=== PATIENT | male | born 1975 | race Caucasian/White ===

== ENCOUNTER 2018-01-01 19:21 | Emergency (ER) | payer OTHER ==
[2018-01-01] MEDS ORDERED: NS 0.9% 1000 ML* 1,000 ML IV ONE (20:00)
[2018-01-01] MEDS ORDERED: Metoclopramide IV* 5 MG/ML 2 ML VIAL IV SLOW PU ONE (20:01)
[2018-01-01] MEDS ORDERED: Ketorolac INJ* 30 MG/ML 1 ML VIAL IV PUSH ONE (20:01)
[2018-01-01 20:27] LABS: Hematocrit 50 % (42-52); Hemoglobin 16.9 g/dl (14.0-18.0); Mean Corpuscular HGB Conc 34 g/dl (31-36); Mean Corpuscular Hemoglobin 29 pg (27-31); Mean Corpuscular Volume 87 fL (80-94); Mean Platelet Volume 8.4 um3 (7.4-10.4); Platelet Count 218 10^3/ul (150-450); Red Blood Count 5.77 10^6/ul (4.0-5.4); Red Cell Distribution Width 13 % (10.5-15); White Blood Count 12.8 10^3/ul (3.5-10.8)
[2018-01-01 20:44] LABS: EGFR Non-African American 72.3 (>60)
[2018-01-01 20:56] LABS: ABS Basophils 0 10^3/ul (0-0.2); ABS Eosinophils 0.1 10^3/ul (0-0.6); ABS Lymphocytes 1.3 10^3/ul (1.0-4.8); ABS Monocytes 1.6 10^3/ul (0-0.8); ABS Neutrophils 9.8 10^3/ul (1.5-7.7); ABS Nucleated RBC 0 10^3/ul; Lymphocyte % 10.4 % (25-47); Nucleated Red Blood Cells % 0.1
[2018-01-01 22:01] VITALS: BP 115/69
--- NOTE | 2018-01-01 22:19 | ED ---
Julio Miller Stephanie, scribed for Luis Walton MD on 01/01/18 at 2001 . Complex/Multi-Sys Presentation - HPI Summary HPI Summary: The pt is a 42 y/o M presenting to the ED with c/o flu symptoms that began on 12/27/17. Symptoms include dehydration, slight memory loss, vomiting, diarrhea, nausea, abd pain, decreased energy, fever and decreased oral intake. The pt states he has not had diarrhea since 12/30/17. The pt denies taking medications for his symptoms. - History Of Current Complaint Chief Complaint: EDFluSymptoms Time Seen by Provider: 01/01/18 19:49 Hx Obtained From: Patient Onset/Duration: Gradual Onset, Lasting Days - 6, Still Present Timing: Constant Severity Currently: Mild Associated Signs And Symptoms: Positive: Confusion, Nausea, Vomiting, Diarrhea, Abdominal Pain, Decreased Oral Intake, Fever - Allergies/Home Medications Allergies/Adverse Reactions: Allergies Allergy/AdvReac Type Severity Reaction Status Date / Time adhesives Allergy Intermediate Itching Uncoded 08/24/16 07:44 VITAMIN B Allergy CYSTS ON Uncoded 08/24/16 07:44 BACK AND NECK PMH/Surg Hx/FS Hx/Imm Hx Endocrine/Hematology History: Denies: Hx Diabetes Cardiovascular History: Denies: Hx Hypertension, Other Cardiovascular Problems/Disorders Respiratory History: Reports: Hx Sleep Apnea - POSSIBLE Denies: Other Respiratory Problems/Disorders GI History: Reports: Hx Gastroesophageal Reflux Disease Denies: Other GI Disorders History: Denies: Hx Renal Disease Musculoskeletal History: Reports: Other Musculoskeletal History - c-spine disc compression, carpal tunnel Sensory History: Denies: Hx Contacts or Glasses, Hx Hearing Aid Opthamlomology History: Denies: Hx Contacts or Glasses Neurological History: Denies: Hx CVA, Other Neuro Impairments/Disorders Psychiatric History: Reports: Hx Anxiety - NO MEDS, Hx Depression - NO MEDS - Cancer History Hx Chemotherapy: No Hx Radiation Therapy: No - Surgical History Surgery Procedure, Year, and Place: denies Hx Anesthesia Reactions: No Infectious Disease History: No Infectious Disease History: Denies: Traveled Outside the [place] in Last 30 Days - Family History Known Family History: Positive: Hypertension - Social History Occupation: Unemployed Lives: With Family Alcohol Use: Occasionally Alcohol Amount: PT states that he drinks 8-10 beers each evening. Hx Substance Use: Yes Substance Use Type: Reports: Other - unknown Substance Use Comment - Amount & Last Used: DAILY Hx Tobacco Use: Yes Smoking Status (MU): Current Every Day Smoker Amount Used/How Often: PACK A DAY Review of Systems Positive: Fever, Other - dehydration, decreased energy, decreased oral intake Positive: Abdominal Pain, Vomiting, Diarrhea, Nausea Neurological: Other - memory loss All Other Systems Reviewed And Are Negative: Yes Physical Exam - Summary Physical Exam Summary: VITAL SIGNS: Reviewed. GENERAL: Patient is a well-developed and nourished MALE who is lying comfortable in the stretcher. Patient is not in any acute respiratory distress. HEAD AND FACE: No signs of trauma. No ecchymosis, hematomas or skull depressions. No sinus tenderness. EYES: PERRLA, EOMI x 2, No injected conjunctiva, no nystagmus. EARS: Hearing grossly intact. Ear canals and tympanic membranes are within normal limits. MOUTH: Oropharynx within normal limits. NECK: Supple, trachea is midline, no adenopathy, no JVD, no carotid bruit, no c- spine tenderness, neck with full ROM. CHEST: Symmetric, no tenderness at palpation LUNGS: Clear to auscultation bilaterally. No wheezing or crackles. CVS: Regular rate and rhythm, S1 and S2 present, no murmurs or gallops appreciated. ABDOMEN: Soft, non-tender. No signs of distention. No rebound no guarding, and no masses palpated. Bowel sounds are normal. EXTREMITIES: FROM in all major joints, no edema, no cyanosis or clubbing. NEURO: Alert and oriented x 3. No acute neurological deficits. Speech is normal and follows commands. SKIN: Dry and warm Triage Information Reviewed: Yes Vital Signs On Initial Exam: Initial Vitals Temp Pulse Resp BP Pulse Ox 98.3 F 88 16 150/88 100 01/01/18 19:23 01/01/18 19:23 01/01/18 19:23 01/01/18 19:23 01/01/18 19:23 Vital Signs Reviewed: Yes Diagnostics - Vital Signs Vital Signs Temp Pulse Resp BP Pulse Ox 01/01/18 19:23 98.3 F 88 16 150/88 100 - Laboratory Result Diagrams: 01/01/18 20:20 01/01/18 20:20 Lab Statement: Any lab studies that have been ordered have been reviewed, and results considered in the medical decision making process. Re-Evaluation - Re-Evaluation First Eval Re-Evaluation Time: 21:26 Change: Improved - The pt states he feels better. Complex Multi-Symp Course/Dx Course Of Treatment: The pt is a 42 y/o M presenting to the ED with c/o flu symptoms that began on 12/27/17. Symptoms include dehydration, slight memory loss , vomiting, diarrhea, nausea, abd pain, decreased energy, fever and decreased oral intake. The pt states he has not had diarrhea since 12/30/17. The pt denies taking medications for his symptoms. Exam unremarkable. mild leuklocytosis. Most likely viral illness, d/c home with reglan. - Diagnoses Provider Diagnoses: Gastroenteritis Discharge - Sign-Out/Discharge Documenting (check all that apply): Discharge - Discharge Plan Condition: Stable Disposition: HOME Prescriptions: Metoclopramide TAB* [Reglan TAB*] 10 mg PO Q6H PRN #20 tab PRN Reason: Nausea/Vomiting Patient Education Materials: Gastroenteritis (ED) Forms: *Work Release Referrals: Dani Kruger MD [Primary Care Provider] - 2 Days Additional Instructions: RETURN TO EMERGENCY DEPARTMENT FOR ANY NEW OR WORSENING SYMPTOMS The documentation as recorded by the Julio ivy Stephanie accurately reflects the service I personally performed and the decisions made by , Luis Walton MD.
== END 2018-01-01 22:01 | disposition home or self-care (01) ==
LOC: ED 19:21
DX: K52.9 Noninfective gastroenteritis and colitis, unspecified (principal)
CPT/HCPCS: 36415; 80053; 82150; 83690; 83735; 85025; 87502; 96360; 96374; 96375; 99283; J1885; J2765

== ENCOUNTER 2018-04-03 06:52 | Day surgery (SDC) | payer OTHER ==
--- NOTE | 2018-03-27 16:38 | HP ---
Amended report to enter co-signing physician. PREOPERATIVE HISTORY AND PHYSICAL: DATE OF SURGERY/ADMISSION: 04/03/18 DATE OF OFFICE VISIT/ENCOUNTER: 03/23/18 ATTENDING SURGEON: Jennifer Vogel MD* (dictated by POLLO Mahoney). PROCEDURE: Right wrist carpal tunnel release. CHIEF COMPLAINT: Numbness and tingling, bilateral hands, right worse than left. HISTORY OF PRESENT ILLNESS: This is a 42-year-old male, who reports that he has had symptoms of pain, numbness, and tingling in his hands for the past 15 years. They have progressively been getting worse. He denies any injury; however, he has done a lot of repetitive motions in the past. He was formally employed in construction and had a lot of problems with repetitive lifting, pushing, pulling. He gets symptoms at night that awakens him. He is right-hand dominant. He also gets symptoms throughout the day with various activities particularly if he is holding his baby with his wrist flexed in a static position. He was seen by Dr. Sandoval in the not too distant past and had an EMG /nerve conduction study ordered, which showed bilateral carpal tunnel syndrome. The patient has tried wrist splints in the past, but they have been minimally helpful. He is interested in more definitive treatment at this time and has consented to proceed with a right wrist carpal tunnel release. PAST MEDICAL HISTORY: 1. Recovering alcoholic. 2. Depression. PAST SURGICAL HISTORY: 1. Right shoulder surgery. 2. Skin biopsy. MEDICATIONS: 1. Amino Acid Complex. 2. Creatine. 3. Prostate medication. ALLERGIES: BENADRYL causes palpitations; VITAMIN B12, reaction unknown. FAMILY MEDICAL HISTORY: Diabetes, heart disease, and cancer. SOCIAL HISTORY: The patient is currently unemployed. He is a former smoker. He quit in 2012. Prior to that, he smoked more than a pack per day for several years. He denies recreational drug use. He is a recovering alcoholic. He has been sober since 08/30/17. REVIEW OF SYSTEMS: General: Negative for fevers, chills, night sweats, unexplained weight loss/gain. No known anesthesia problems. HEENT: Negative for headache, lightheadedness, syncopal episodes, visual changes. Integumentary : Negative for abrasions, lesions, or open wounds. Cardiothoracic: Negative for hypertension, chest pain, palpitations, edema. Respiratory: Negative for shortness of breath with exertion, chronic cough, wheezing. GI: Negative for nausea, vomiting, diarrhea, constipation, GERD. : Negative for nocturia, urinary frequency, urgency, history of UTIs, kidney problems. Musculoskeletal: Positive for current complaint. Negative for chronic or intermittent back pain or history of fractures. Neurological: Positive for paresthesias and numbness , bilateral hands. Negative for history of seizure, stroke, poor balance. Endocrine: Negative for diabetes and thyroid issues. Hematologic: Negative for easy bruising, anemia, bleeding disorders, history of DVT. Infectious Disease: Negative for history of MRSA, hepatitis C, HIV. PHYSICAL EXAMINATION GENERAL: Well-developed, well-nourished, 42-year-old male, in no acute distress. VITAL SIGNS: Height 5 feet 7 inches, weight 197 pounds. Pulse rate 70, blood pressure 126/78. HEENT: Normocephalic, atraumatic. Pupils are equal, round, and reactive to light and accommodation. Extraocular movements are intact. Throat is clear. NECK: Supple. No palpable lymph nodes. PULMONARY: Lungs are clear to auscultation bilaterally. No wheezes, rales, or rhonchi. CARDIOVASCULAR: Regular rate and rhythm. S1, S2. No murmurs, rubs, or gallops. No edema. ABDOMEN: Positive bowel sounds, soft, nontender. NEUROLOGICAL: Alert and oriented x3. Cranial nerves II through XII are intact. MUSCULOSKELETAL: On exam of bilateral upper extremities, his hands in particular, there is no muscular wasting noted at the thenar eminence or interosseous muscles. He has good strength in his thumb and with finger abduction. He has good motion in his thumb and fingers. He has no tenderness to palpation at the elbow. He has a positive Phalen's test, bilateral wrists. Negative Tinel's at the wrist and elbow. Positive median nerve compression test. He has good software engineer backend strength bilaterally and neurovascular function is intact. Sensation is intact to light touch throughout the hand. DIAGNOSTIC STUDIES: Nerve conduction/EMG shows bilateral mild carpal tunnel syndrome. IMPRESSION: Bilateral carpal tunnel syndrome. PLAN: The patient is scheduled to undergo a right wrist carpal tunnel release with Dr. Vogel on 04/03/18. He will return to the office 10 days postop for followup and suture removal. A prescription for Ultracet was given to the patient to fill for postoperative pain management. POLLO MAOHNEY [id number]/[facility] #: [id number] MTDSimone
[~2018-04-03 06:52] MED LIST: Buffered Lidocaine 0.9% SYRIN* 5 ML/SYR SYRINGE INTRADERM ONE
[2018-04-03] MEDS ORDERED: fentaNYL* 50 MCG/ML 2 ML VIAL (100 MCG VIAL) ONE (07:22)
[2018-04-03] MEDS ORDERED: Midazolam* 1 MG/ML 2 ML VIAL (2 MG) ONE (07:22)
[2018-04-03] MEDS ORDERED: Lidocaine 2% PF * 5 ML VIAL ONE (07:23)
[2018-04-03] MEDS ORDERED: Ondansetron INJ* 2 MG/ML VIAL IV PRN (07:46)
[2018-04-03] MEDS ORDERED: HYDROmorphone INJ* 0.5 MG/0.5 ML SYRINGE IV PRN (07:46)
[2018-04-03] MEDS ORDERED: fentaNYL* 50 MCG/ML 2 ML VIAL (100 MCG VIAL) IV PRN (07:46)
[2018-04-03] MEDS ORDERED: Acetaminophen TAB* 325 MG PO PRN (07:46)
[2018-04-03] MEDS ORDERED: HYDROcodone/ACETAMIN 5-325 MG* 1 TAB PO PRN (07:46)
[2018-04-03] MEDS ORDERED: oxyCODONE TAB* 5 MG TAB PO PRN (07:46)
[2018-04-03] MEDS ORDERED: Naloxone* 0.4 MG/ML 1 ML VIAL IV PRN (07:46)
[2018-04-03] MEDS ORDERED: Ketorolac INJ* 30 MG/ML 1 ML VIAL ONE (07:55)
[2018-04-03] MEDS ORDERED: Propofol* 10 MG/ML 20 ML BTL IV PUSH ONE (07:55)
[2018-04-03] MEDS ORDERED: Lidocaine 1%* 5 ML VIAL ONE (08:11)
[2018-04-03 09:33] VITALS: BP 110/75
--- NOTE | 2018-04-03 21:27 | OP ---
DATE OF OPERATION: 04/03/18 [facility] DATE OF : 77 SURGEON: Jennifer Vogel MD TREATER HELPER: POLLO Mahoney ANESTHESIA: Local MAC. PRE-OP DIAGNOSIS: Right carpal tunnel syndrome. POST-OP DIAGNOSIS: Right carpal tunnel syndrome. OPERATIVE PROCEDURE: Right carpal tunnel release. ESTIMATED BLOOD LOSS: Zero. TOURNIQUET TIME: 5 minutes. INDICATIONS FOR PROCEDURE: Jimi is a 42-year-old male with numbness and tingling in the median nerve distribution of his right hand. He presents for right carpal tunnel release. DESCRIPTION OF PROCEDURE: The patient was brought to the operating room, was given a sedation anesthetic and a local infiltration of 10 cc of 1% plain lidocaine in the palm of his right hand. The skin of his right hand and forearm were prepped and draped in the usual sterile fashion. The hand and forearm were exsanguinated and the tourniquet elevated to 250 mmHg. A longitudinal incision was made in the palm in line with the ring finger. We dissected sharply through the subcutaneous tissue down to the transverse carpal ligament. The ligament was divided sharply with a knife and then more proximally with the scissors. The nerve was dissected free from the surrounding tissue and there was an area of moderate compression at the mid portion of the ligament. The wound was irrigated and the skin edges were reapproximated with 4-0 nylon suture. The wound was dressed with Xeroform, 4x4 , Webril, and an Shaun wrap. The patient tolerated the procedure well and was brought to the recovery room in good condition. [id number]/[facility] #: [id number] [facility]XTON HOSPITALSimone
== END 2018-04-03 09:45 | disposition home or self-care (01) ==
LOC: OREAST 06:52
PROVIDERS: ATTEND Orthopaedic Surgery
DX: G56.01 Carpal tunnel syndrome, right upper limb (principal); F10.21 Alcohol dependence, in remission; Z68.30 Body mass index [BMI] 30.0-30.9, adult; Z87.891 Personal history of nicotine dependence; F41.8 Other specified anxiety disorders; F43.10 Post-traumatic stress disorder, unspecified; M47.812 Spondylosis without myelopathy or radiculopathy, cervical region
CPT/HCPCS: J1885; J2250; J2704; J3010

== ENCOUNTER 2018-11-08 08:58 | Emergency (ER) | payer OTHER ==
[2018-11-08 09:09] VITALS: BP 142/90
--- NOTE | 2018-11-08 12:21 | ED ---
Lower Extremity - HPI Summary HPI Summary: Patient is a 43-year-old male presenting to the ED with a right great toe injury. He states he stubbed the toe on a stair yesterday. He endorses pain with movement, better with rest. Ecchymosis to the great toe without ecchymosis to the other toes or dorsum of the foot. He remains ambulatory. Denies any numbness or tingling. He has never injured the toe in the past. - History of Current Complaint Chief Complaint: EDExtremityLower Stated Complaint: RIGHT FOOT INJURY Time Seen by Provider: 11/08/18 09:13 Hx Obtained From: Patient Mechanism Of Injury: Direct Blow Onset of Pain: Minutes Onset/Duration: Days Severity Initially: Mild Severity Currently: Mild Pain Intensity: 0 Pain Scale Used: 0-10 Numeric Timing: Constant Location: Is Discrete @ - right great toe Character Of Pain: Aching Associated Signs And Symptoms: Positive: Bruising. Negative: Swelling, Redness Aggravating Factor(s): Standing, Ambulation Alleviating Factor(s): Rest Able to Bear Weight: Yes - Allergies/Home Medications Allergies/Adverse Reactions: Allergies Allergy/AdvReac Type Severity Reaction Status Date / Time VITAMIN B Allergy Severe CYSTS ON Uncoded 04/03/18 07:22 BACK AND NECK adhesives Allergy Intermediate ITCHING, Uncoded 04/03/18 07:22 RASH PMH/Surg Hx/FS Hx/Imm Hx Previously Healthy: Yes Endocrine/Hematology History: Denies: Hx Bone Marrow Disease, Hx Diabetes, Hx Sickle Cell Disease, Hx Anemia Cardiovascular History: Denies: Hx Hypertension, Other Cardiovascular Problems/Disorders Respiratory History: Reports: Hx Sleep Apnea - POSSIBLE ? NOT BEEN DX Denies: Other Respiratory Problems/Disorders GI History: Reports: Hx Gastroesophageal Reflux Disease Denies: Other GI Disorders History: Reports: Other Problems/Disorders - PRIMARY FOLLOWING FOR PROSTATE ISSUES Denies: Hx Renal Disease Musculoskeletal History: Reports: Hx Arthritis - GENERALIZED, Other Musculoskeletal History - C-SPINE DISC COMPRESSION, CTS Sensory History: Denies: Hx Contacts or Glasses, Hx Hearing Aid Opthamlomology History: Denies: Hx Contacts or Glasses Neurological History: Denies: Hx CVA, Other Neuro Impairments/Disorders - CERVICAL SPINE DJD, RIGHT CTS Psychiatric History: Reports: Hx Anxiety - NO MEDS, SUFFERS FROM PTSD, Hx Depression - NO MEDS - Cancer History Hx Chemotherapy: No Hx Radiation Therapy: No - Surgical History Surgery Procedure, Year, and Place: RIGHT SHOULDER SURGERY 2016 [facility] Hx Anesthesia Reactions: Yes - SEE SAFETY CONCERN ABOVE - Immunization History Hx Pertussis Vaccination: No Immunizations Up to Date: Yes Infectious Disease History: No Infectious Disease History: Denies: Traveled Outside the [place] in Last 30 Days - Family History Known Family History: Positive: Hypertension - Social History Occupation: Employed Full-time Lives: With Family Alcohol Use: Rare Alcohol Amount: PT states that he drinks 8-10 beers each evening. Hx Substance Use: Yes Substance Use Type: Reports: Marijuana Substance Use Comment - Amount & Last Used: NONE RECENT Hx Tobacco Use: Yes Smoking Status (MU): Former Smoker Type: Cigarettes Amount Used/How Often: 1 PPD FOR 15 YRS Length of Time of Smoking/Using Tobacco: 15 YRS Have You Smoked in the Last Year: No Review of Systems Constitutional: Negative Negative: Fever, Chills, Fatigue Negative: Palpitations, Chest Pain Negative: Shortness Of Breath Negative: Abdominal Pain Positive: Arthralgia Positive: Bruising All Other Systems Reviewed And Are Negative: Yes Physical Exam Triage Information Reviewed: Yes Vital Signs On Initial Exam: Initial Vitals Temp Pulse Resp BP Pulse Ox 99.2 F 84 17 142/90 95 11/08/18 09:03 11/08/18 09:03 11/08/18 09:03 11/08/18 09:03 11/08/18 09:03 Vital Signs Reviewed: Yes Appearance: Positive: Well-Appearing, Well-Nourished Skin: Positive: Warm, Skin Color Reflects Adequate Perfusion, Other - ecchymosis to the R great toe Head/Face: Positive: Normal Head/Face Inspection Eyes: Positive: EOMI, JEAN-PAUL, Conjunctiva Clear Neck: Positive: No Lymphadenopathy Respiratory/Lung Sounds: Positive: Clear to Auscultation, Breath Sounds Present Cardiovascular: Positive: RRR, Pulses are Symmetrical in both Upper and Lower Extremities Musculoskeletal: Positive: Pain @ - right great toe pain Neurological: Positive: Speech Normal Psychiatric: Positive: Affect/Mood Appropriate Diagnostics - Vital Signs Vital Signs Temp Pulse Resp BP Pulse Ox 11/08/18 10:57 99.2 F 84 17 142/90 95 11/08/18 09:03 99.2 F 84 17 142/90 95 - Laboratory Lab Statement: Any lab studies that have been ordered have been reviewed, and results considered in the medical decision making process. Lower Extremity Course/Dx - Course Course Of Treatment: X-ray of the toe obtained which shows a possible distal metatarsal fracture of the PIP. Discussed findings with patient. Patient states he is okay for discharge at this time. He will follow up if any symptoms worsen. - Diagnoses Provider Diagnoses: Toe fracture, right Discharge - Sign-Out/Discharge Documenting (check all that apply): Patient Departure Patient Received Moderate/Deep Sedation with Procedure: No - Discharge Plan Condition: Stable Disposition: HOME Patient Education Materials: Toe Fracture (ED) Referrals: Dani Kruger MD [Primary Care Provider] - - Billing Disposition and Condition Condition: STABLE Disposition: Home
== END 2018-11-08 10:58 | disposition home or self-care (01) ==
LOC: ED 08:58
DX: S92.421A Displaced fracture of distal phalanx of right great toe, initial encounter for closed fracture (principal); Z87.891 Personal history of nicotine dependence; K21.9 Gastro-esophageal reflux disease without esophagitis; M19.90 Unspecified osteoarthritis, unspecified site; G47.30 Sleep apnea, unspecified; W22.8XXA Striking against or struck by other objects, initial encounter; Y92.9 Unspecified place or not applicable
CPT/HCPCS: 99281

== ENCOUNTER 2019-02-19 16:20 | Emergency (ER) | payer OTHER ==
--- NOTE | 2019-02-19 16:47 | ED ---
Respiratory - HPI Summary HPI Summary: Pt is a 43 y/o M with intermittent productive cough and shortness of breath that has been persistent for the past 2-3 weeks. He has moderate chest pain with deep breaths and with coughing. Admits to intermittent nausea. States his son attends daycare but denies any known sick contacts. Denies vomiting, fever, palpitations. Denies tobacco use, admits to marijuana use but states he has not been smoking marijuana the last 2-3 weeks due to his cough. Denies hx of asthma and COPD. - History of Current Complaint Chief Complaint: EDFluSymptoms Stated Complaint: DIFFICULTY BREATHING PER PT Time Seen by Provider: 02/19/19 16:35 Hx Obtained From: Patient Onset/Duration: Gradual Onset, Lasting Weeks Initial Severity: Mild Current Severity: Moderate Pain Intensity: 2 Character: Cough (Productive), Dyspnea on Exertion Associated Signs and Symptoms: SOB, Chest Pain with Cough - Allergy/Home Medications Allergies/Adverse Reactions: Allergies Allergy/AdvReac Type Severity Reaction Status Date / Time VITAMIN B Allergy Severe CYSTS ON Uncoded 04/03/18 07:22 BACK AND NECK adhesives Allergy Intermediate ITCHING, Uncoded 04/03/18 07:22 RASH PMH/Surg Hx/FS Hx/Imm Hx Endocrine/Hematology History: Denies: Hx Bone Marrow Disease, Hx Diabetes, Hx Sickle Cell Disease, Hx Anemia Cardiovascular History: Denies: Hx Hypertension, Other Cardiovascular Problems/Disorders Respiratory History: Reports: Hx Sleep Apnea - POSSIBLE ? NOT BEEN DX Denies: Other Respiratory Problems/Disorders GI History: Reports: Hx Gastroesophageal Reflux Disease Denies: Other GI Disorders History: Reports: Other Problems/Disorders - PRIMARY FOLLOWING FOR PROSTATE ISSUES Denies: Hx Renal Disease Musculoskeletal History: Reports: Hx Arthritis - GENERALIZED, Other Musculoskeletal History - C-SPINE DISC COMPRESSION, CTS Sensory History: Denies: Hx Contacts or Glasses Opthamlomology History: Denies: Hx Contacts or Glasses Neurological History: Denies: Hx CVA, Other Neuro Impairments/Disorders - CERVICAL SPINE DJD, RIGHT CTS Psychiatric History: Reports: Hx Anxiety - NO MEDS, SUFFERS FROM PTSD, Hx Depression - NO MEDS - Cancer History Hx Chemotherapy: No Hx Radiation Therapy: No - Surgical History Surgery Procedure, Year, and Place: RIGHT SHOULDER SURGERY 2016 [facility] [place] Hx Anesthesia Reactions: Yes - SEE SAFETY CONCERN ABOVE Infectious Disease History: No Infectious Disease History: Denies: Traveled Outside the [place] in Last 30 Days - Family History Known Family History: Positive: Hypertension - Social History Alcohol Use: Daily Alcohol Amount: "too many" daily. nothing today Hx Substance Use: Yes Substance Use Type: Reports: Marijuana Substance Use Comment - Amount & Last Used: NONE for 2 weeks. Hx Tobacco Use: Yes Smoking Status (MU): Former Smoker Type: Cigarettes Amount Used/How Often: 1 PPD FOR 15 YRS Length of Time of Smoking/Using Tobacco: 15 YRS Have You Smoked in the Last Year: No Review of Systems Negative: Fever, Chills Negative: Palpitations, Chest Pain Positive: Shortness Of Breath, Cough - productive Positive: Nausea. Negative: Abdominal Pain, Vomiting, Diarrhea Negative: Headache All Other Systems Reviewed And Are Negative: Yes Physical Exam Triage Information Reviewed: Yes Vital Signs On Initial Exam: Initial Vitals Temp Pulse Resp BP Pulse Ox 98.6 F 78 18 157/93 97 02/19/19 16:26 02/19/19 16:26 02/19/19 16:26 02/19/19 16:26 02/19/19 16:26 Vital Signs Reviewed: Yes Appearance: Positive: Well-Appearing, No Pain Distress Skin: Positive: Warm, Dry Head/Face: Positive: Normal Head/Face Inspection Eyes: Positive: Normal ENT: Positive: Normal ENT inspection, Pharynx normal. Negative: Pharyngeal erythema, Nasal congestion Respiratory/Lung Sounds: Positive: Clear to Auscultation. Negative: Rales, Rhonchi, Wheezes Cardiovascular: Positive: Normal Abdomen Description: Positive: Nontender, Soft. Negative: Distended Bowel Sounds: Positive: Present Musculoskeletal: Positive: Normal Neurological: Positive: Normal Psychiatric: Positive: Normal Diagnostics - Vital Signs Vital Signs Temp Pulse Resp BP Pulse Ox 02/19/19 16:26 98.6 F 78 18 157/93 97 - Laboratory Lab Statement: Any lab studies that have been ordered have been reviewed, and results considered in the medical decision making process. - Radiology CXR Radiology Interpretation Completed By: Radiologist - No acute pulmonary findings. Disposition - Course Course Of Treatment: pt is 43 y/o male with 2-3 weeks productive cough and sore throat. No pharyngeal erythema or tonsillar hypertrophy. Lungs clear to auscultation without wheezes, rhonchi, rales. CXR negative for acute findings. Pt discharged with rx for prednisone, mucinex DM and albuterol inhaler. He will f/u with his PCP. Assessment/Plan: Patient seen in conjunction with the physician program support assistant student alyx Arnold. Chart was initiated on the computer that he was apparently signed onto. Lung exam is clear. Patient with cough for 3 weeks but minor cold symptoms. X-ray negative. Treat symptomatically. - Differential Dx - Cardiopulmonary Differential Diagnoses - Cardiopulmonary: Bronchitis, Lower Resp Infection, Sinusitis, Other - pharyngitis, pneumonia - Diagnoses Provider Diagnoses: Bronchitis Discharge - Sign-Out/Discharge Documenting (check all that apply): Patient Departure Patient Received Moderate/Deep Sedation with Procedure: No - Discharge Plan Condition: Improved Disposition: HOME Prescriptions: Albuterol HFA INHALER* [Ventolin HFA Inhaler*] 2 puff INH Q4H PRN #1 mdi PRN Reason: Sob/Wheezing Guaifenesin/Dextromethorphan [Mucinex Dm ER 600-30 mg Tablet] 1 each PO BID PRN #15 tab.er.12h PRN Reason: Cough predniSONE TAB* [Deltasone TAB*] 50 mg PO DAILY #4 tab Patient Education Materials: Acute Bronchitis (ED) Referrals: Dani Kruger MD [Medical Doctor] - Additional Instructions: Stay well-hydrated. Avoid smokers in smoking. Return with high fever, difficulty breathing, worse or other concerns. Call your doctor in the morning to schedule prompt follow-up. - Billing Disposition and Condition Condition: IMPROVED Disposition: Home - Attestation Statements Document Initiated by Marielibe: Sherry
[2019-02-19 17:32] VITALS: BP 0/0
== END 2019-02-19 17:30 | disposition home or self-care (01) ==
LOC: ED 16:20
DX: J40 Bronchitis, not specified as acute or chronic (principal); R11.0 Nausea; Z87.891 Personal history of nicotine dependence
CPT/HCPCS: 71046; 99282

== ENCOUNTER 2019-07-06 08:52 | Emergency (ER) | payer OTHER ==
[2019-07-06 09:04] VITALS: BP 115/86
[2019-07-06 09:42] LABS: Rapid Strep Molecular POSITIVE (Negative)
[2019-07-06] MEDS ORDERED: Lidocaine 2% VISCOUS* 15 ML UDC PO ONE (09:45)
--- NOTE | 2019-07-06 10:55 | ED ---
Throat Pain/Nasal Congestion - HPI Summary HPI Summary: This patient is a 43-year-old male who presents to the ED with sore throat 2 days. He states symptoms have been worse this morning. He endorses that in a patient without dysphagia. He denies any shortness of breath or chest pain. He denies any subjective fevers, however has been endorsing sweats. States he is otherwise healthy. Nonsmoker. Mild cough. Denies rhinorrhea or sinus pressure pain. Denies headache or visual changes. Denies any decreased hearing or ear aches. - History of Current Complaint Chief Complaint: EDThroatPain Time Seen by Provider: 07/06/19 09:15 Hx Obtained From: Patient Onset/Duration: Sudden Onset Associated Signs And Symptoms: Positive: Dysphagia - Epiglottits Risk Factors Epiglottis Risk Factors: Negative - Allergies/Home Medications Allergies/Adverse Reactions: Allergies Allergy/AdvReac Type Severity Reaction Status Date / Time adhesive Allergy Intermediate Rash And Verified 07/06/19 09:48 Itching vitamin B Allergy Intermediate See Comment Uncoded 07/06/19 09:48 PMH/Surg Hx/FS Hx/Imm Hx Previously Healthy: Yes Endocrine/Hematology History: Denies: Hx Bone Marrow Disease, Hx Diabetes, Hx Sickle Cell Disease, Hx Anemia Cardiovascular History: Denies: Hx Hypertension, Other Cardiovascular Problems/Disorders Respiratory History: Reports: Hx Sleep Apnea - POSSIBLE ? NOT BEEN DX Denies: Other Respiratory Problems/Disorders GI History: Reports: Hx Gastroesophageal Reflux Disease Denies: Other GI Disorders History: Reports: Other Problems/Disorders - PRIMARY FOLLOWING FOR PROSTATE ISSUES Denies: Hx Renal Disease Musculoskeletal History: Reports: Hx Arthritis - GENERALIZED, Other Musculoskeletal History - C-SPINE DISC COMPRESSION, CTS Sensory History: Denies: Hx Contacts or Glasses Opthamlomology History: Denies: Hx Contacts or Glasses Neurological History: Denies: Hx CVA, Other Neuro Impairments/Disorders - CERVICAL SPINE DJD, RIGHT CTS Psychiatric History: Reports: Hx Anxiety - NO MEDS, SUFFERS FROM PTSD, Hx Depression - NO MEDS - Cancer History Hx Chemotherapy: No Hx Radiation Therapy: No - Surgical History Surgery Procedure, Year, and Place: [place] [facility] [place] Anesthesia Reactions: Yes - SEE SAFETY CONCERN ABOVE - Immunization History Hx Pertussis Vaccination: No Immunizations Up to Date: Yes Infectious Disease History: No Infectious Disease History: Denies: Traveled Outside the [place] in Last 30 Days - Family History Known Family History: Positive: Hypertension - Social History Alcohol Use: Occasionally Alcohol Amount: states he used to drink a lot more Hx Substance Use: Yes Substance Use Type: Reports: Marijuana Substance Use Comment - Amount & Last Used: NONE for 2 weeks. Hx Tobacco Use: Yes Smoking Status (MU): Former Smoker Type: Cigarettes Amount Used/How Often: 1 PPD FOR 15 YRS Length of Time of Smoking/Using Tobacco: 15 YRS Have You Smoked in the Last Year: No Review of Systems Negative: Fever, Chills, Fatigue, Skin Diaphoresis Positive: Sore Throat Negative: Palpitations, Chest Pain Negative: Shortness Of Breath, Cough Genitourinary: Negative Positive: no symptoms reported, see HPI Negative: Arthralgia, Myalgia Skin: Negative Neurological: Negative All Other Systems Reviewed And Are Negative: Yes Physical Exam Triage Information Reviewed: Yes Vital Signs On Initial Exam: Initial Vitals Temp Pulse Resp BP Pulse Ox 97.4 F 77 16 115/86 99 07/06/19 09:02 07/06/19 09:02 07/06/19 09:02 07/06/19 09:02 07/06/19 09:02 Vital Signs Reviewed: Yes Appearance: Positive: No Pain Distress, Well-Nourished Skin: Positive: Warm, Skin Color Reflects Adequate Perfusion Head/Face: Positive: Normal Head/Face Inspection Eyes: Positive: EOMI, Conjunctiva Clear ENT: Positive: Pharyngeal erythema, Tonsillar swelling, Uvula midline. Negative : Nasal congestion, Nasal drainage, Tonsillar exudate, Trismus, Muffled voice, Sinus tenderness Neck: Positive: Supple, No Lymphadenopathy Cardiovascular: Positive: RRR, Pulses are Symmetrical in both Upper and Lower Extremities Musculoskeletal: Positive: Strength/ROM Intact Neurological: Positive: Sensory/Motor Intact, Alert, Oriented to Person Place, Time, Speech Normal Psychiatric: Positive: Affect/Mood Appropriate AVPU Assessment: Alert Procedures - Sedation Patient Received Moderate/Deep Sedation with Procedure: No Diagnostics - Vital Signs Vital Signs Temp Pulse Resp BP Pulse Ox 07/06/19 10:20 16 07/06/19 09:02 97.4 F 77 16 115/86 99 - Laboratory Lab Results: Lab Results 07/06/19 Range/Units 09:27 Group A Strep Rapid Positive A (Negative) Lab Statement: Any lab studies that have been ordered have been reviewed, and results considered in the medical decision making process. EENT Course/Dx - Course Course Of Treatment: Patient is evaluated for sore throat 2 days. Patient is afebrile and other vital signs stable. He appears well on arrival. Lungs CTA, RRR, pharyngeal erythema without tonsillar exits bilaterally. Bilateral cervical LAD. Strep swab obtained and is positive. He is given penicillin twice a day 10 days. Viscous lidocaine given to him in the ED and prescription given. - Diagnoses Provider Diagnoses: Strep throat Discharge ED - Sign-Out/Discharge Documenting (check all that apply): Patient Departure - Discharge Plan Condition: Stable Disposition: HOME Prescriptions: Lidocaine 2% VISCOUS* [Xylocaine 2% Viscous*] 15 ml SWISH SPIT Q4H PRN #1 btl PRN Reason: Pain - Mild Penicillin VK 500 MG TAB(NF) [Penicillin VK 500 mg Tab(NF)] 500 mg PO BID #20 tab MDD 2 Patient Education Materials: Strep Throat (ED) Referrals: No Primary Care Phys,NOPCP [Primary Care Provider] - Additional Instructions: Dx: Strep Throat You will need antibiotic medicine to treat your strep throat. Please take the antibiotic as directed. You should feel better within 2 to 3 days after you start antibiotics. You may return to work or school 24 hours after you start antibiotics. If you have any questions about your medications, please do no hesitate to call or talk with your pharmacist. How can I manage my symptoms? Use lozenges (over the counter Cepacol or chloraseptic tabs), ice, soft foods, or popsicles to soothe your throat. Drink juice, milk shakes, or soup if your throat is too sore to eat solid food. Drinking liquids can also help prevent dehydration. Gargle with salt water. Mix teaspoon salt in a 1 cup of warm water and gargle. This may help reduce swelling in your throat. Do not smoke. Nicotine and other chemicals in cigarettes and cigars can cause lung damage and make your symptoms worse. Ask your healthcare provider for information if you currently smoke and need help to quit. E-cigarettes or smokeless tobacco still contain nicotine. Talk to your healthcare provider before you use these products. How do I prevent the spread of strep throat? Wash your hands often. Use soap and water. Wash your hands after you use the bathroom, change a child's diapers, or sneeze. Wash your hands before you prepare or eat food. Do not share food or drinks. Replace your toothbrush after you have taken antibiotics for 24 hours. Ibuprofen 600mg three times daily for pain and inflammation Viscous lidocaine as needed for throat pain Penicillin 500mg twice daily x 10 days It was a pleasure taking care of you today Return for any worsening symptoms - Billing Disposition and Condition Condition: STABLE Disposition: Home
== END 2019-07-06 10:16 | disposition home or self-care (01) ==
LOC: ED 08:52
DX: J02.0 Streptococcal pharyngitis (principal); R05 Cough; Z87.891 Personal history of nicotine dependence
CPT/HCPCS: 87651; 99282